=== PATIENT | male | born 1965 | race Caucasian/White ===

== ENCOUNTER 2018-12-20 12:56 | Emergency (ER) | payer MEDICAID, OTHER ==
[2018-12-20] MEDS ORDERED: NS 0.9% 1000 ML** 1,000 ML IV.FLUID IV ONE (13:21)
[2018-12-20 14:01] LABS: ABS Lymphocytes 0.8 10^3/ul (1.0-4.8); ABS Monocytes 0.6 10^3/ul (0-0.8); ABS Neutrophils 6.6 10^3/ul (1.5-7.7); Eosinophil % 0.1 %; Hematocrit 38 % (42-52); Hemoglobin 13.1 g/dL (14.0-18.0); Lymphocyte % 9.9 %; Mean Corpuscular HGB Conc 35 g/dL (31-36); Mean Corpuscular Hemoglobin 32 pg (27-31); Mean Corpuscular Volume 93 fL (80-94); Platelet Count 238 10^3/uL (150-450); Red Cell Distribution Width 13 % (10-15); White Blood Count 8.1 10^3/uL (3.5-10.8)
--- NOTE | 2018-12-20 14:19 | ED ---
Syncope/Near Syncope - HPI Summary HPI Summary: Patient is a 53-year-old male presenting to the ED with a chief complaint near syncopal episode due to dehydration. 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 He tried to sit down, but fell, hitting his head. He states he does recall the event. He is endorsing had pain at this time. There is a small laceration to the posterior scalp. He states he has not drink enough water and drinks alcohol daily. He has been dehydrated in the past he states this feels similar. He denies any other concerns at this time. He denies any CP, SOB, abdominal pain, nausea, vomiting, diarrhea, fever, sweats, chills, cough, congestion or other recent illness. He denies any dizziness or weakness at this time. He states he feels at his baseline. - History Of Current Complaint Chief Complaint: EDSyncope Time Seen by Provider: 12/20/18 13:06 Hx Obtained From: Patient Onset/Duration: Sudden Onset Timing: Constant Associated Head Trauma: No Aggravating Factor(s): Nothing Alleviating Factor(s): Nothing Associated Signs And Symptoms: Head Trauma (Recent), Lightheadedness, Weakness - Risk Factors Cardiac Risk Factors: Smoking Risk Factor(s): ETOH Abuse - Allergies/Home Medications Allergies/Adverse Reactions: Allergies Allergy/AdvReac Type Severity Reaction Status Date / Time No Known Allergies Allergy Verified 08/08/13 20:14 Home Medications: Home Medications NK [No Home Medications Reported] 12/20/18 [History Confirmed 12/20/18] PMH/Surg Hx/FS Hx/Imm Hx Previously Healthy: Yes Endocrine/Hematology History: Denies: Hx Diabetes Cardiovascular History: Denies: Hx Hypertension History: Denies: Hx Renal Disease - Immunization History Hx Pertussis Vaccination: No Immunizations Up to Date: Yes Infectious Disease History: No Infectious Disease History: Denies: Traveled Outside the [place] in Last 30 Days - Social History Occupation: Employed Full-time Lives: With Family Alcohol Use: Daily Alcohol Amount: 12+ daily Hx Substance Use: Yes Substance Use Type: Reports: Marijuana Hx Tobacco Use: Yes Smoking Status (MU): Heavy Every Day Tobacco Smoker Review of Systems Constitutional: Negative Negative: Fever, Chills, Fatigue, Skin Diaphoresis Negative: Palpitations, Chest Pain Negative: Shortness Of Breath, Cough Positive: no symptoms reported, see HPI Negative: Arthralgia, Myalgia Skin: Negative Neurological: Negative Positive: Weakness All Other Systems Reviewed And Are Negative: Yes Physical Exam Triage Information Reviewed: Yes Vital Signs On Initial Exam: Initial Vitals Temp Pulse Resp BP Pulse Ox 98.9 F 61 16 168/87 94 12/20/18 12:57 12/20/18 12:57 12/20/18 12:57 12/20/18 12:57 12/20/18 12:57 Vital Signs Reviewed: Yes Skin: Positive: Warm, Dry Head/Face: Positive: Other - laceration to the posterior scalp Eyes: Positive: EOMI, MAGALIE, Conjunctiva Clear Neck: Positive: Supple, No Lymphadenopathy Respiratory/Lung Sounds: Positive: Clear to Auscultation, Breath Sounds Present Cardiovascular: Positive: RRR, Pulses are Symmetrical in both Upper and Lower Extremities Musculoskeletal: Positive: Normal, Strength/ROM Intact Neurological: Positive: Speech Normal Psychiatric: Positive: Normal, Affect/Mood Appropriate AVPU Assessment: Alert - Ursula Coma Scale Best Eye Response: 4 - Spontaneous Best Motor Response: 6 - Obeys Commands Best Verbal Response: 5 - Oriented Coma Scale Total: 15 Diagnostics - Vital Signs Vital Signs Temp Pulse Resp BP Pulse Ox 12/20/18 13:33 73 22 178/107 95 12/20/18 13:09 63 93 12/20/18 13:07 65 181/103 94 12/20/18 12:57 98.9 F 61 16 168/87 94 - Laboratory Lab Results: Lab Results 12/20/18 Range/Units 13:39 WBC 8.1 (3.5-10.8) 10^3/uL RBC 4.10 L (4.18-5.48) 10^6 /uL Hgb 13.1 L (14.0-18.0) g/dL Hct 38 L (42-52) % MCV 93 (80-94) fL MCH 32 H (27-31) pg MCHC 35 (31-36) g/dL RDW 13 (10-15) % Plt Count 238 (150-450) 10^3/uL MPV 8.0 (7.4-10.4) fL Neut % (Auto) 82.3 % Lymph % (Auto) 9.9 % [place] % (Auto) 7.3 % Eos % (Auto) 0.1 % Baso % (Auto) 0.4 % Absolute Neuts (auto) 6.6 (1.5-7.7) 10^3/ul Absolute Lymphs (auto) 0.8 L (1.0-4.8) 10^3/ul Absolute Monos (auto) 0.6 (0-0.8) 10^3/ul Absolute Eos (auto) 0.0 (0-0.6) 10^3/ul Absolute Basos (auto) 0.0 (0-0.2) 10^3/ul Absolute Nucleated RBC 0.0 10^3/ul Nucleated RBC % 0.0 Result Diagrams: 12/20/18 13:39 12/20/18 13:39 Lab Statement: Any lab studies that have been ordered have been reviewed, and results considered in the medical decision making process. Course/Dx Course Of Treatment: During the course of treatment, the patient's evaluated for near syncopal episode and head injury. Patient denies any other symptoms at this time. He states he feels otherwise well and at his baseline. Labs obtained which show normal white count. Patient is hyponatremic. He is repleted with 3 L fluids and is given fluid restriction here in ED. possible etiology of alcoholic hyponatremia due to excessive consumption. He states he is feeling improved and will like to be discharged home. CT brain obtained which is negative for any acute findings. There is a small abrasion/laceration to the posterior scalp, but he declines any nina at this time. He is encouraged salty foods and to replete his nutrients with food and drink. - Diagnoses Provider Diagnoses: Alcohol use, Syncope, Dehydration Discharge - Sign-Out/Discharge Documenting (check all that apply): Patient Departure Patient Received Moderate/Deep Sedation with Procedure: No - Discharge Plan Condition: Stable Disposition: HOME Patient Education Materials: Dehydration (ED), Syncope (ED) Referrals: No Primary Care Phys,NOPCP [Primary Care Provider] - Additional Instructions: Eat more salty foods in the next few days Replete your fluids with healthy drinks and meals V8 juice and gatorade will help - Billing Disposition and Condition Condition: STABLE Disposition: Home
[2018-12-20 14:20] LABS: ALT 66 U/L (7-52); AST 92 U/L (13-39); Albumin 4.1 g/dL (3.2-5.2); Albumin/Globulin Ratio 1.4 (1-3); Alkaline Phosphatase 48 U/L (34-104); Anion Gap 9 mmol/L (2-11); BUN/Creatinine Ratio 11.6 (8-20); Blood Urea Nitrogen 8 mg/dL (6-24); CO2 Carbon Dioxide 25 mmol/L (22-32); Calcium 8.4 mg/dL (8.6-10.3); Chloride 91 mmol/L (101-111); EGFR African American 145.1 (>60); EGFR Non-African American 119.9 (>60); Glucose 95 mg/dL (70-100); Potassium 3.4 mmol/L (3.5-5.0); Sodium 125 mmol/L (135-145); Total Protein 7.1 g/dL (6.4-8.9); Troponin I 0.01 ng/mL (<0.04)
[2018-12-20] MEDS ORDERED: NS 0.9% 1000 ML** 1,000 ML IV ONE (14:25)
[2018-12-20 16:45] VITALS: BP 187/91
[2018-12-20 17:04] LABS: Alcohol < 10 mg/dL (<10)
== END 2018-12-20 16:44 | disposition home or self-care (01) ==
LOC: ED 12:56
DX: E86.0 Dehydration (principal); R55 Syncope and collapse; Z72.89 Other problems related to lifestyle; F17.210 Nicotine dependence, cigarettes, uncomplicated
CPT/HCPCS: 36415; 70450; 80053; 80320; 83605; 84484; 85025; 93005; 96360; 99284; G0480